=== PATIENT | female | born 1985 | race Two or more races ===

== ENCOUNTER → 2018-01-06 14:32 | Outpatient (CLI) | payer BC, SELFPAY ==
--- NOTE | 2018-01-06 14:38 | MR_ITS ---
MR head/brain wo con HISTORY: ITS.REASON: MEMORY LOSS, ACUTE NONINTRACTABLE HEADACHE ORDERING PHYSICIAN: Shannan Jacobsen PATIENT AGE: 32 years Comparison: 06/20/2015 TECHNIQUE: Standard multiplanar multiecho sequences are performed without contrast. FINDINGS: No midline shift, mass effect, intracranial hemorrhage, hydrocephalus, or acute infarction is evident. There is normal snow-white matter differentiation. The cerebellopontine angles, cerebellum, and brainstem are unremarkable. The pituitary and optic chiasm are unremarkable. The hippocampal structures are unremarkable in the temporal horns are symmetric. No mastoid effusion or sinus air-fluid level. IMPRESSION: Negative MRI of the brain. No acute finding with no significant change from 01/06/2018
== END ==
PROVIDERS: Family Provider Nurse Practitioner Family; Visit Provider Nurse Practitioner Family
DX: R51 Headache (principal); R41.3 Other amnesia
CPT/HCPCS: 70551

== ENCOUNTER → 2021-08-15 15:30 | Outpatient (CLI) | payer BC, SELFPAY | PROVIDERS: PCP Nurse Practitioner Family; Visit Provider Nurse Practitioner | DX: U07.1 COVID-19 (principal) | CPT/HCPCS: C9803; U0003; U0005 ==

== ENCOUNTER 2023-09-10 18:09 | Outpatient (CLI) | payer BC, SELFPAY | END 2023-09-10 23:59 | LOC: LAB.DROPOF 18:09 | PROVIDERS: PCP Nurse Practitioner Family; Visit Provider Nurse Practitioner Family | DX: R51.9 Headache, unspecified (principal); R09.81 Nasal congestion; R06.02 Shortness of breath; R05.9 Cough, unspecified | CPT/HCPCS: 87635 ==

== ENCOUNTER 2025-05-07 11:55 | Outpatient (CLI) | payer BC, SELFPAY ==
[2025-05-07 14:00] LABS: Hematocrit 38.1 % (37.0-47.0); Hemoglobin 12.5 g/dL (12.2-16.2); Immature Granulocytes % 0.2 %; Mean Corpuscular HGB Conc 32.8 g/dL (31.8-35.4); Mean Corpuscular Hemoglobin 30.5 pg (27.0-31.2); Mean Corpuscular Volume 92.9 fl (81-99); Nucleated Red Blood Cells % 0 %; Platelet Count 240 K/mm3 (142-424); Red Blood Count 4.10 M/mm3 (4.20-5.40); Red Cell Distribution Width-SD 43.2 fL; White Blood Count 5.2 K/mm3 (4.8-10.8)
[2025-05-07 14:31] LABS: Albumin Level 5.5 g/dl (3.5-5.0); Chloride 102 mmol/L (98-107)
[2025-05-07 14:32] LABS: Potassium 4.3 mmoL/L (3.5-5.1); Sodium 138 mmol/L (136-145)
[2025-05-07 14:34] LABS: Alanine Aminotransferase 12 U/L (12-78); Alkaline Phosphatase 63 U/L (38-126); Anion Gap 13.3 mEq/L (5-15); Aspartate Amino Transferase 28 U/L (14-36); Bilirubin,Total 1.0 mg/dl (0.2-1.3); Blood Urea Nitrogen 7 mg/dl (7-17); Carbon Dioxide 27 mmol/L (22.0-30.0); Creatinine,Serum 0.60 mg/dl (0.52-1.04); Estimated Glomerular Filt Rate 112 ml/min (>60); GFR (African American) 136 ML/MIN (>60)
[2025-05-07 14:35] LABS: Albumin/Globulin Ratio 2.3 (1.1-1.8); Calcium 9.1 mg/dl (8.4-10.2); Cholesterol 191 mg/dl (140-200); Globulin 2.4 g/dL (1.3-3.2); Glucose 85 mg/dl (74-100); HDL Cholesterol 65 mg/dl (40-60); Magnesium 2.3 mg/dl (1.6-2.3); Total Protein,Serum 7.9 g/dl (6.3-8.2); Triglycerides 105 mg/dl (30-150)
[2025-05-07 14:53] LABS: 25-OH Vitamin D, Total 24.0 ng/mL (30-100)
[2025-05-07 15:07] LABS: Thyroid Stimulating Hormone 1.95 uIU/mL (0.465-4.68)
[2025-05-07 15:10] LABS: Ferritin 44.3 ng/ml (6.24-137)
[2025-05-07 16:36] LABS: Vitamin B12 539 pg/mL (239-931)
== END 2025-05-07 23:59 ==
LOC: LAB.DROPOF 05-10 11:56
PROVIDERS: PCP Nurse Practitioner Family; Visit Provider Nurse Practitioner Family
DX: D64.9 Anemia, unspecified (principal); Z13.220 Encounter for screening for lipoid disorders; R61 Generalized hyperhidrosis; R19.7 Diarrhea, unspecified; E55.9 Vitamin D deficiency, unspecified
CPT/HCPCS: 80053; 80061; 82306; 82607; 82670; 82728; 83735; 84144; 84443; 85025